=== PATIENT | female | born 1970 | race Caucasian/White ===

== ENCOUNTER 2019-05-21 07:53 | Day surgery (SDC) | payer BC ==
[~2019-05-21 07:53] MED LIST: Lactated Ringers 1,000 ML IV SCH; Lidocaine 2% 5 ML SDV ONE; Midazolam 1 MG/ML 2 ML SDV ONE; Ondansetron 4 MG/2 ML SDV ONE; Propofol 200 MG/20 ML SDV ONE; fentaNYL 250 MCG/5 ML SDV ONE
--- NOTE | 2019-05-21 08:41 | PCM.PREANE ---
Preanesthetic Assessment - Anesthesia/Transfusion/Family Hx Anesthesia History: Prior Anesthesia Without Reaction Family History of Anesthesia Reaction: No Transfusion History: No Prior Transfusion(s) - Review of Systems General: No Symptoms Pulmonary: Other (prob RYAN by sx, not formally tested) Gastrointestinal: No Symptoms Neurological: No Symptoms Other: Reports: None - Physical Assessment NPO Status Date: 05/20/19 NPO Status Time: 21:00 Vital Signs: Last Vital Signs Temp 97.2 F 05/21/19 08:00 Pulse 86 05/21/19 08:00 Resp 18 05/21/19 08:00 BP 158/85 H 05/21/19 08:00 Pulse Ox 95 05/21/19 08:00 Height: 5 ft 2.75 in Weight: 110.677 kg ASA Class: 2 Mental Status: Alert & Oriented x3 Airway Class: Mallampati = 2 Dentition: Reports: Normal Dentition ROM/Head Extension: Full Lungs: Clear to Auscultation, Normal Respiratory Effort Cardiovascular: Regular Rate, Regular Rhythm - Lab Values: Laboratory Last Values WBC 6.65 K/uL (4.0-11.0) 05/21/19 08:13 RBC 4.95 M/uL (4.30-5.90) 05/21/19 08:13 Hgb 14.8 g/dL (12.0-16.0) 05/21/19 08:13 Hct 45.3 % (36.0-46.0) 05/21/19 08:13 MCV 91.5 fL (80.0-98.0) 05/21/19 08:13 MCH 29.9 pg (27.0-32.0) 05/21/19 08:13 MCHC 32.7 g/dL (31.0-37.0) 05/21/19 08:13 RDW Std Deviation 45.1 fl (28.0-62.0) 05/21/19 08:13 RDW Coeff of Kiran 14 % (11.0-15.0) 05/21/19 08:13 Plt Count 262 K/uL (150-400) 05/21/19 08:13 MPV 10.20 fL (7.40-12.00) 05/21/19 08:13 Nucleated RBC % 0.0 /100WBC 05/21/19 08:13 Nucleated RBCs # 0 K/uL 05/21/19 08:13 Urine HCG, Qual NEGATIVE (NEGATIVE) 05/21/19 08:13 - Allergies Allergies/Adverse Reactions: Allergies Allergy/AdvReac Type Severity Reaction Status Date / Time No Known Allergies Allergy Verified 05/20/19 09:32 - Blood Blood Available: No - Anesthesia Plan Pre-Op Medication Ordered: None - Acknowledgements Anesthesia Type Planned: General Anesthesia Pt an Appropriate Candidate for the Planned Anesthesia: Yes Alternatives and Risks of Anesthesia Discussed w Pt/Guardian: Yes Pt/Guardian Understands and Agrees with Anesthesia Plan: Yes Additional Comments: PMH: bmi=43, prob RYAN PLAN: light GA PreAnesthesia Questionnaire HEENT History: Reports: Other (See Below) Other HEENT History: wears glasses Cardiovascular History: Reports: Hypertension, Other (See Below) Other Cardiovascular History: "elevated BP at times", not on medications at this time Respiratory History: Reports: Other (See Below) Other Respiratory History: states she thinks she may have sleep apnea but has not had sleep study done Gastrointestinal History: Reports: None Genitourinary History: Reports: None GEOLOGICAL ENGINEER History: Reports: Musculoskeletal History: Reports: None Neurological History: Reports: None Psychiatric History: Reports: Anxiety Endocrine/Metabolic History: Reports: Obesity/BMI 30+ Hematologic History: Reports: None Immunologic History: Reports: None Oncologic (Cancer) History: Reports: None Dermatologic History: Reports: None - Past Surgical History Head Surgeries/Procedures: Reports: None HEENT Surgical History: Reports: None Cardiovascular Surgical History: Reports: None Respiratory Surgical History: Reports: None GI Surgical History: Reports: None Female Surgical History: Reports: Section Endocrine Surgical History: Reports: None Neurological Surgical History: Reports: None Musculoskeletal Surgical History: Reports: None Oncologic Surgical History: Reports: None Dermatological Surgical History: Reports: Other (See Below) - SUBSTANCE USE Smoking Status *Q: Current Every Day Smoker Tobacco Use Within Last Twelve Months: Cigarettes - HOME MEDS Home Medications: Home Meds Nyquil Cold&Flu Night Time 30 ml PO BEDTIME PRN 05/20/19 [History] - CURRENT (IN HOUSE) MEDS Current Meds: Current Medications Lactated Ringer's (Ringers, Lactated) 1,000 mls @ 100 mls/hr IV ASDIRECTED [facility] Last Admin: 05/21/19 08:18 Dose: 100 mls/hr Discontinued Medications Fentanyl (Sublimaze) Confirm Administered Dose 250 mcg .ROUTE .STK-MED ONE Stop: 05/21/19 07:07 Lidocaine (Xylocaine-Mpf 2%) Confirm Administered Dose 5 ml .ROUTE .STK-MED ONE Stop: 05/21/19 07:06 Midazolam HCl (Versed 1 Mg/Ml) Confirm Administered Dose 2 mg .ROUTE .STK-MED ONE Stop: 05/21/19 07:07 Ondansetron HCl (Zofran) Confirm Administered Dose 4 mg .ROUTE .STK-MED ONE Stop: 05/21/19 07:06 Propofol (Diprivan 20 Ml) Confirm Administered Dose 200 mg .ROUTE .STK-MED ONE Stop: 05/21/19 07:06
[2019-05-21] MEDS ORDERED: Lidocaine 1% with EPINEPHrine 1:100,000 20 ML MDV ONE (08:49)
[2019-05-21] MEDS ORDERED: Vasopressin 20 Units/1 ML MDV ONE (08:49)
[2019-05-21] MEDS ORDERED: Atropine 0.1 MG/ML 10 ML Syringe IVPUSH PRN ×2 (09:52)
[2019-05-21] MEDS ORDERED: fentaNYL 100 MCG/2 ML SDV IVPUSH PRN (09:52)
[2019-05-21] MEDS ORDERED: Albuterol 0.083% 2.5 MG/3 ML Neb Soln NEB PRN (09:52)
[2019-05-21] MEDS ORDERED: Sodium Chloride 0.9% 10 ML SDV IV PRN (09:52)
[2019-05-21] MEDS ORDERED: Naloxone 0.4 MG/ML Syringe IVPUSH PRN (09:52)
[2019-05-21] MEDS ORDERED: 50% Dextrose in Water 50 ML Syringe IVPUSH PRN (09:52)
[2019-05-21] MEDS ORDERED: EPINEPHrine 1:10,000 1 MG/10 ML Syringe IVPUSH PRN (09:52)
[2019-05-21] MEDS ORDERED: Sodium Chloride 0.9% 10 ML Syringe FLUSH PRN (09:52)
[2019-05-21] MEDS ORDERED: Sodium Chloride 0.9% 2.5 ML Syringe FLUSH PRN (09:52)
[2019-05-21] MEDS ORDERED: Lactated Ringers 1,000 ML IV SCH (10:00)
--- NOTE | 2019-05-21 10:37 | PCM.POSTAN ---
POST ANESTHESIA ASSESSMENT - MENTAL STATUS Mental Status: Alert, Oriented - VITAL SIGNS Vital Signs: Last Vital Signs Temp 36.5 C 05/21/19 10:16 Pulse 89 05/21/19 10:32 Resp 18 05/21/19 10:32 BP 139/86 05/21/19 10:32 Pulse Ox 96 05/21/19 10:32 - RESPIRATORY Respiratory Status: Respiratory Rate WNL, Airway Patent, O2 Saturation Stable - CARDIOVASCULAR CV Status: Pulse Rate WNL, Blood Pressure Stable - GASTROINTESTINAL GI Status: No Symptoms - POST OP HYDRATION Hydration Status: Adequate & Stable
--- NOTE | 2019-05-21 10:43 | PCM.OPNOTE ---
- General Post-Op/Procedure Note Date of Surgery/Procedure: 05/21/19 Operative Procedure(s): excision of vaginal wall cyst. Findings: 3 cm and 2 cm right posterior vaginal wall cyst, discrete from the rectum. Pre Op Diagnosis: vaginal wall cyst Post-Op Diagnosis: Same Anesthesia Technique: General LMA Primary Surgeon: Ara Chapa Secondary Surgeon: Abdulaziz Romero Anesthesia Provider: Erich Smiley Lead Nurse: Erich Mcclelland Pathology: vaginal wall cyst Fluid Replacement, Intraop: 900 EBL in mLs: 125 Complications: None Known Condition: Good Free Text/Narrative:: Intake & Output 05/20/19 05/21/19 05/21/19 22:59 06:59 14:59 Intake Total 975 Balance 975
--- NOTE | 2019-05-21 11:01 | PCM48HPAN ---
Post Anesthesia Note - EVALUATION WITHIN 48HRS OF ANESTHETIC Vital Signs in Normal Range: Yes Patient Participated in Evaluation: Yes Respiratory Function Stable: Yes Airway Patent: Yes Cardiovascular Function Stable: Yes Hydration Status Stable: Yes Pain Control Satisfactory: Yes Nausea and Vomiting Control Satisfactory: Yes Mental Status Recovered: Yes Vital Signs: Last Vital Signs Temp 36.5 C 05/21/19 10:38 Pulse 83 05/21/19 10:38 Resp 14 05/21/19 10:38 BP 142/81 H 05/21/19 10:38 Pulse Ox 92 L 05/21/19 10:38
[2019-05-21] MEDS ORDERED: Metoprolol Tartrate 5 MG/5 ML SDV ONE (11:49)
[2019-05-21] MEDS ORDERED: Lidocaine 2% 5 ML SDV ONE (11:49)
--- NOTE | 2019-05-21 12:32 | OR ---
SURGEON: Ara Chapa M.D. DATE OF PROCEDURE: 05/21/2019 PREOPERATIVE DIAGNOSIS: Vaginal cyst. POSTOPERATIVE DIAGNOSIS: Vaginal cyst. PROCEDURE: Excision of vaginal cyst. PRIMARY SURGEON: Ara Chapa MD. DIRECTOR SHIP: Abdulaziz Romero MD. ANESTHESIA: General LMA. ESTIMATED BLOOD LOSS: 125 mL. FINDINGS: Two separate cysts in the right lower vaginal area, neither is involving the rectovaginal septum. One had a purulent discharge, the other was removed intact. On rectal examination at the end of the procedure, there was no evidence of any sutures within the rectum. There was a rectocele above the level of the cysts noted. COMPLICATIONS: None known. DISPOSITION: Stable to Recovery. BRIEF HISTORY: This is a 48-year-old female with a rather sudden onset of a painful vaginal cyst that was palpable to her. She was seen by her primary, Yolie Aguero, and was referred for further evaluation. She has not noticed this cyst previously. It is uncomfortable for her, and she desires to have it excised. A CT with IV contrast was performed and showed a simple vaginal cyst without extension into the rectovaginal septum or other pelvic structures. She was consented for removal of the cyst including risk of bleeding, infection, injury to surrounding organs, and risk of pain. Understanding all these risks, she does desire to proceed. DESCRIPTION OF PROCEDURE: With the patient in dorsal lithotomy position, under adequate general LMA analgesia, the perineum and vagina were prepped with Betadine and draped in the usual fashion for vaginal surgery. SCDs were in place. The bladder was drained and an appropriate time-out was held. Examination including a rectovaginal examination revealed a right vaginal sidewall cyst. There were actually two components to it, the larger component of approximately a 3 cm simple cyst and beneath this more irregular firm area that resulted in purulent drainage. Postoperatively, on rectal examination, there were no sutures or defect in the rectal mucosa and the vagina was hemostatic. After careful examination had been performed, vaginal retractors were placed. 10 mL of 1% lidocaine with epinephrine was injected within the vaginal mucosa surrounding the cyst. A scalpel was used to circumscribe the cyst, which was then grasped with an Allis clamp. Metzenbaum scissors were used to carefully dissect around the cyst. When the Allis clamp was placed, the smaller firm area with purulent discharge was noted and this was also removed with the Metzenbaum scissors. The base of the cyst was then cross-clamped and cut and ligated with 3-0 Vicryl. The cyst was then passed off for pathology specimen. A deep running suture of 3-0 Vicryl was utilized for closure of the vaginal wall as well as hemostasis. The vagina was inspected and observed without any pressure for greater than 2 minutes to confirm that there was no active bleeding and there was none. All the instruments had been removed from the vagina. Final sponge, needle, and instrument counts were reported as correct. There were no known complications. The patient was transferred to Recovery in good condition. LESLIE JACINTO /[id number]
== END 2019-05-21 11:10 | disposition home or self-care (01) ==
LOC: MW.SDS 07:53
PROVIDERS: ATTEND Obstetrics & Gynecology
DX: Q52.4 Other congenital malformations of vagina (principal); N81.6 Rectocele; I10 Essential (primary) hypertension; F17.210 Nicotine dependence, cigarettes, uncomplicated; E66.9 Obesity, unspecified; Z68.41 Body mass index [BMI] 40.0-44.9, adult
CPT/HCPCS: 00940; 36415; 81025; 85027; 88307; J2001; J2250; J2405; J2704; J3010; J3490; J7120